=== PATIENT | female | born 1995 | race Caucasian/White ===

== ENCOUNTER 2020-11-16 09:24 | Emergency (ER) | payer MEDICAID ==
[~2020-11-16] VITALS: Ht 157.5 cm; Wt 68.0 kg
--- NOTE | 2020-11-16 09:42 | NUR ---
PT COMPLAINS OF VAGINAL BLEEDING X 2 DAYS. PT STATES THAT SHE HAS TO CHANGE 1 PAD DAILY, PAD SATURATED. PT DENIES DIZZINESS. PT DENIES ABDOMINAL PAIN/CRAMPING. LMP OCTOBER 06, 2020. PT AOX4, BREATHING EVEN AND UNLABORED, SKIN WARM AND DRY. BED IN LOWEST POSITION, LOCKED, BED RAIL UPX1. PMH - DENIES ALLERGIES -NKA
--- NOTE | 2020-11-16 11:13 | NUR ---
Pt taken to ER bed 2.
--- NOTE | 2020-11-16 11:17 | NUR ---
Dr. Conde at pt bedside for further evaluation.
[2020-11-16 11:20] LABS: BASOPHILS % (AUTO) 0.8 % (0.0-2.0); EOSINOPHILS % (AUTO) 0.6 % (0.0-4.0); HEMATOCRIT 41.4 % (36-48); HEMOGLOBIN 13.9 g/dL (12.0-16.0); LYMPHOCYTES # (AUTO) 1.3 K/uL (2.5-16.5); LYMPHOCYTES % (AUTO) 22.4 % (20.5-51.1); MEAN CORPUSCULAR HEMOGLOBIN 31 pg (27-31); MEAN CORPUSCULAR HGB CONC 34 g/dL (33-37); MEAN CORPUSCULAR VOLUME 93.2 fL (80-94); MONOCYTES # (AUTO) 0.3 K/uL (0.8-1.0); NEUTROPHILS # (AUTO) 4.2 K/uL (1.8-7.7); NEUTROPHILS % (AUTO) 71.2 % (42.2-75.2); PLATELET COUNT (AUTO) 222 K/uL (140-450); RED BLOOD CELL COUNT(AUTO) 4.45 MIL/uL (4.20-5.40); RED CELL DISTRIBUTION WIDTH 12.9 % (11.6-13.7); WHITE BLOOD COUNT (AUTO) 5.9 K/uL (4.8-10.8)
[2020-11-16 11:43] LABS: APPEARANCE,URINE CLEAR (CLEAR); BILIRUBIN,URINE NEGATIVE (NEGATIVE); BLOOD, URINE 2+ (NEGATIVE); COLOR,URINE YELLOW (YELLOW); LEUKOCYTE ESTERASE ,URINE NEGATIVE (NEGATIVE); NITRITE, URINE NEGATIVE (NEGATIVE); UGLUCOSE NEGATIVE (NEGATIVE)
[2020-11-16 11:47] LABS: WBC,URINE 0-5 /HPF (0-5)
[2020-11-16 12:19] VITALS: BP 128/83
--- NOTE | 2020-11-16 12:19 | NUR ---
Patient discharged with v/s stable. Written and verbal after care instructions about miscarriage given and explained. Patient verbalized understanding. Ambulatory with steady gait. All questions addressed prior to discharge. Advised to follow up with PMD.
== END 2020-11-16 12:19 | disposition home or self-care (01) ==
LOC: MED 09:24
DX: O20.0 Threatened abortion (principal); Z3A.01 Less than 8 weeks gestation of pregnancy
CPT/HCPCS: 36415; 76817; 81001; 84702; 85025; 86900; 86901; 99284

== ENCOUNTER 2023-10-09 11:41 | Emergency (ER) | payer MEDICAID, OTHER ==
[~2023-10-09] VITALS: Ht 157.5 cm; Wt 90.0 kg
[2023-10-09 11:43] VITALS: BP 115/78; PULSE 86; RESP 18; TEMP 98.2; O2SAT 98
[2023-10-09 12:24] LABS: BASOPHILS % (AUTO) 0.6 % (0.0-2.0); EOSINOPHILS % (AUTO) 0.3 % (0.0-4.0); HEMATOCRIT 40.5 % (36-48); HEMOGLOBIN 13.6 g/dL (12.0-16.0); LYMPHOCYTES # (AUTO) 1.4 K/uL (2.5-16.5); MEAN CORPUSCULAR HEMOGLOBIN 30 pg (27-31); MEAN CORPUSCULAR HGB CONC 34 g/dL (33-37); MEAN CORPUSCULAR VOLUME 88.3 fL (80-94); MONOCYTES # (AUTO) 0.3 K/uL (0.8-1.0); MONOCYTES % (AUTO) 4.2 % (1.7-9.3); NEUTROPHILS # (AUTO) 6.3 K/uL (1.8-7.7); NEUTROPHILS % (AUTO) 77.9 % (42.2-75.2); PLATELET COUNT (AUTO) 254 K/uL (140-450); RED BLOOD CELL COUNT(AUTO) 4.59 MIL/uL (4.20-5.40); RED CELL DISTRIBUTION WIDTH 13.2 % (11.6-13.7); WHITE BLOOD COUNT (AUTO) 8.1 K/uL (4.8-10.8)
[2023-10-09 13:10] LABS: BILIRUBIN,URINE 1+ (NEGATIVE); BLOOD, URINE 2+ (NEGATIVE); LEUKOCYTE ESTERASE ,URINE 1+ (NEGATIVE); NITRITE, URINE NEGATIVE (NEGATIVE); PROTEIN,URINE TRACE (NEGATIVE); UGLUCOSE NEGATIVE (NEGATIVE); UROBILINOGEN,URINE 0.2 EU/dL (0.2 - 1)
[2023-10-09 13:12] LABS: APPEARANCE,URINE SLIGHTLY CLOUDY (CLEAR); COLOR,URINE SLIGHT BLOODY (YELLOW)
[2023-10-09 13:49] LABS: BACTERIA,URINE 1+ /HPF (None Seen); RBC,URINE 11-20 (MOD) /HPF (0-5); WBC,URINE 0-5 /HPF (0-5)
[2023-10-09 13:50] LABS: ICTOTEST NEGATIVE (NEGATIVE)
[2023-10-09 14:09] VITALS: BP 125/81; PULSE 86; RESP 18; TEMP 98.2; O2SAT 98
== END 2023-10-09 14:09 | disposition home or self-care (01) ==
LOC: MED 11:41
DX: O26.891 Other specified pregnancy related conditions, first trimester (principal); Z3A.01 Less than 8 weeks gestation of pregnancy
CPT/HCPCS: 36415; 76817; 81001; 84702; 85025; 86900; 86901; 87086; 99284; Q0092

== ENCOUNTER 2023-10-19 10:06 | Inpatient (IN) | payer OTHER ==
[~2023-10-19] VITALS: Ht 160 cm; Wt 89.8 kg
[~2023-10-19 10:06] MED LIST: NITR100C7 PO
[2023-10-19 10:23] VITALS: BP 138/87; PULSE 97; RESP 18; TEMP 97.3; O2SAT 99
[2023-10-19] MEDS: ONDANSETRON 4 MG/2 ML VIAL IVP ONE ×2 (10:44→11:43)
[2023-10-19] MEDS: NACL 0.9% 1,000 ML IV ONE (10:44)
[2023-10-19] MEDS: MORPHINE SULFATE 4 MG/ML SYR IVP ONE ×2 (10:58→15:09)
[2023-10-19 11:24] LABS: BASOPHILS % (AUTO) 0.4 % (0.0-2.0); EOSINOPHILS % (AUTO) 0.3 % (0.0-4.0); HEMATOCRIT 37.1 % (36-48); HEMOGLOBIN 12.6 g/dL (12.0-16.0); LYMPHOCYTES # (AUTO) 1.3 K/uL (2.5-16.5); LYMPHOCYTES % (AUTO) 13.1 % (20.5-51.1); MEAN CORPUSCULAR HEMOGLOBIN 30 pg (27-31); MEAN CORPUSCULAR HGB CONC 34 g/dL (33-37); MONOCYTES # (AUTO) 0.3 K/uL (0.8-1.0); NEUTROPHILS # (AUTO) 8.4 K/uL (1.8-7.7); NEUTROPHILS % (AUTO) 83.2 % (42.2-75.2); PLATELET COUNT (AUTO) 185 K/uL (140-450); RED BLOOD CELL COUNT(AUTO) 4.22 MIL/uL (4.20-5.40); RED CELL DISTRIBUTION WIDTH 13.1 % (11.6-13.7); WHITE BLOOD COUNT (AUTO) 10.1 K/uL (4.8-10.8)
[2023-10-19] MEDS: DEXT 5% /NACL 0.9% 1,000 ML IV ONE (14:11)
[2023-10-19] MEDS ORDERED: MORPHINE SULFATE 4 MG/ML SYR ONE (14:51)
[2023-10-19] MEDS: HYDROmorphone PFS 2 MG/ML SYR ONE ×2 (15:18→17:00)
[2023-10-19] MEDS: PROPOFOL 200 MG/20 ML VIAL IV ONE (15:19)
[2023-10-19] MEDS ORDERED: SEVOFLURANE 250 ML BTL INH ONE (15:50)
[2023-10-19] MEDS ORDERED: SIMETHICONE 80 MG TAB.CHEW PO PRN (16:15)
[2023-10-19] MEDS ORDERED: HYDROmorphone 1 MG/ML AMP IVP PRN ×2 (16:15→17:00)
[2023-10-19] MEDS ORDERED: KETOROLAC 30 MG/ML VIAL IVP PRN (16:15)
[2023-10-19] MEDS ORDERED: oxyCODONE/APAP 5/325 MG 1 TAB TAB PO PRN (16:15)
[2023-10-19] MEDS ORDERED: IBUPROFEN 800 MG TAB PO PRN (16:15)
[2023-10-19] MEDS ORDERED: TEMAZEPAM 15 MG CAP PO PRN (16:15)
[2023-10-19] MEDS: ceFAZolin 1,000 MG VIAL ONE ×2 (16:16)
[2023-10-19] MEDS: DEXAMETHASONE 4 MG/ML VIAL ONE (16:16)
[2023-10-19] MEDS: ONDANSETRON 4 MG/2 ML VIAL ONE (16:16)
[2023-10-19] MEDS: ROCURONIUM 50 MG/5 ML VIAL IV ONE (16:29)
[2023-10-19] MEDS: SUCCINYLCHOLINE CHLORIDE 200 MG/10 ML VIAL IVP ONE (16:30)
[2023-10-19] MEDS: NEOSTIGMINE 1:1000 10 MG/10 ML VIAL ONE (16:30)
[2023-10-19] MEDS: GLYCOPYRROLATE 0.2 MG/ML VIAL ONE (16:30)
[2023-10-19] MEDS: BUPIVACAINE-MPF 0.25% 30 ML VIAL INJ ONE (16:42)
[2023-10-19] MEDS ORDERED: ONDANSETRON 4 MG/2 ML VIAL IVP PRN (17:00)
[2023-10-19] MEDS ORDERED: MEPERIDINE 25 MG/ML SYR IVP PRN (17:00)
[2023-10-19 18:00] VITALS: BP 101/55; PULSE 60; RESP 18; TEMP 96.9; O2SAT 98
[2023-10-19] MEDS: PIPERACILLIN/TAZOBACTAM 3.375 GM in DEXTROSE 5% 50 ML IV SCH (19:11)
[2023-10-19 20:00] VITALS: PULSE 57
[2023-10-19] MEDS: DOCUSATE SOD/SENNA 50/8.6 MG 1 TAB PO SCH (20:31)
[2023-10-20] VITALS: BP 93/48; PULSE 60; RESP 20; TEMP 97.7
[2023-10-20 04:00] VITALS: BP 97/77; PULSE 73; RESP 18; TEMP 98.6; O2SAT 99
[2023-10-20] MEDS: oxyCODONE/APAP 5/325 MG 1 TAB TAB PO PRN (07:20)
[2023-10-20 08:00] VITALS: BP 109/70; PULSE 78; RESP 18; TEMP 98.7; O2SAT 100
[2023-10-20] MEDS: MEDS-TO-BEDS MC SCH (09:31)
[2023-10-20 12:18] VITALS: BP 109/70; PULSE 78; RESP 18; TEMP 98.7
[2023-10-20 12:20] VITALS: BP 109/70; PULSE 78; RESP 18; TEMP 98.7
== END 2023-10-20 13:55 | disposition home or self-care (01) | DRG 547 ==
LOC: MED 10:06 → MDS 14:58 → MTU 16:36
PROVIDERS: ADMIT Obstetrics & Gynecology; ATTEND Obstetrics & Gynecology
PROC: 10T20ZZ Resection of Products of Conception, Ectopic, Open Approach (ICD-10-PCS; principal; 2023-10-19 15:00)
DX: O00.102 Left tubal pregnancy without intrauterine pregnancy (principal); K66.1 Hemoperitoneum
CPT/HCPCS: 36415; 76801; 76817; 84702; 85025; 86886; 86900; 86901; 87081; 96361; 96374; 96375; 96376; 99285; J0330; J0690; J1100; J1170; J2270; J2405; J2543; J2704; J2710; J3490; J7060; Q0092